=== PATIENT | male | born 1990 | race Caucasian/White ===

== ENCOUNTER 2022-01-04 01:02 | Emergency (ER) | payer MEDICAID, OTHER, SELFPAY ==
[2022-01-04 01:06] VITALS: BP 132/68; PULSE 82; O2SAT 99; BMI 24.9
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
[2022-01-04 01:17] VITALS: BP 125/74; PULSE 116; RESP 17; TEMP 36.4; O2SAT 96
[2022-01-04 01:22] LABS: Glucose, Whole Blood 145 mg/dL (60-115)
--- NOTE | 2022-01-04 02:18 | PC.NURSE ---
LATE ENTRY-pt continues to disconnect self from pulse ox, hospital monitor , and bp cuff. this rn assisted pt in moving up in bed
--- NOTE | 2022-01-04 02:19 | PC.NURSE ---
LATE ENTRY-pt attempt to get out of bed. pt redirected back in to bed by this rn
--- NOTE | 2022-01-04 02:20 | PC.NURSE ---
pt found OOB, unsteady on feet, zipping up coat. this rn and welding machine feeder polina attempted to redirect back to bed. pt noncompliant. security called. Dr. Larsen discussed with pt need to stay in bed. security observation in place
--- NOTE | 2022-01-04 04:16 | PC.NURSE ---
pt was redirected 3 times he was trying to leave , he took off BP cuff and monitor leads, refused ..pt is going between chair and bed
--- NOTE | 2022-01-04 04:44 | PC.NURSE ---
at this time pt sleeping comfortable on right side
[2022-01-04 06:06] VITALS: PULSE 81; RESP 17; O2SAT 96
--- NOTE | 2022-01-04 08:10 | PC.NURSE ---
[id number] pt was seen fully dreseed and ambulating w steady gait just outside of his room. it appears that he eloped soon after that
== END 2022-01-04 09:08 | disposition left against medical advice (07) ==
PROVIDERS: Emergency Provider Emergency Medicine
DX: F10.129 Alcohol abuse with intoxication, unspecified (principal); Y90.8 Blood alcohol level of 240 mg/100 ml or more
CPT/HCPCS: 82947; 99284; 99285

== ENCOUNTER 2022-07-05 23:44 | Emergency (ER) | payer MEDICAID, OTHER, SELFPAY ==
[2022-07-05 23:51] VITALS: BP 139/89; PULSE 115; RESP 16; TEMP 36.5; O2SAT 97; BMI 30.8
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
[2022-07-06 00:11] LABS: MANUAL DIFF FLAG NO
[2022-07-06 00:14] LABS: Basophils Percent Auto 0.3 % (0-2); Eosinophils Absolute Auto 0.1 X10*3/uL (0.0-0.4); Eosinophils Percent Auto 0.9 % (0-4); Hematocrit 45.2 % (42.0-52.0); Imm Gran Abs Auto 0.04 X10*3/uL (0.00-0.03); Imm Gran Pct Auto 0.4 % (0.0-0.4); Lymphocytes Absolute Auto 4.4 X10*3/uL (1.2-4.9); Lymphocytes Percent Auto 46.9 % (20-40); Mean Corpuscular HGB Conc 35.4 g/dl (31.0-36.0); Mean Corpuscular Hemoglobin 30.1 pg (27.0-33.0); Mean Platelet Volume 8.9 fL (9.4-12.4); Monocytes Absolute Auto 0.5 X10*3/uL (0.1-1.2); Monocytes Percent Auto 5.5 % (2-11); Neutrophils Absolute Auto 4.3 x10*3/uL (2.0-8.3); Platelet Count 311 X10*3/uL (160-400); Red Blood Count 5.32 X10*6/uL (4.60-5.80); Red Cell Distribution Width 12.1 % (11.0-16.0); White Blood Count 9.3 X10*3/uL (4.8-10.8)
[2022-07-06 00:34] LABS: Alanine Aminotransferase 47 U/L (0-40); Albumin Level 4.7 g/dL (3.5-5.0); Alkaline Phosphatase 139 U/L (39-117); Anion Gap 19 (12-20); Aspartate Amino Transferase 22 U/L (5-37); Bilirubin Total 0.2 mg/dL (0.0-1.0); Blood Urea Nitrogen 15 mg/dL (9-16); Calcium 9.4 mg/dL (8.4-10.2); Carbon Dioxide 22 mmol/L (22-29); Chloride 105 mmol/L (96-108); Creatinine Clr Calc Pharmacy 125.8; Estimated Glomerular Filt Rate > 60; Ethanol 237 mg/dL; Glucose Random 122 mg/dL (60-115); Potassium 3.5 mmol/L (3.3-5.1); Sodium 142 mmol/L (135-145); Total Protein 7.5 g/dL (6.5-8.0)
[2022-07-06 00:37] LABS: COVID-19 Test Negative (Negative); IDNOW Serial# 08D9AD1C
--- NOTE | 2022-07-06 03:41 | PC.NURSE ---
pt sleeping at this time, respirations even and unlabored, skin pwd, no apparent distress. pt has been calm and cooperative throughout time here Continue plan of care, urine sample needed for medical clearance to be seen by CARE team
[2022-07-06 03:42] VITALS: PULSE 83; RESP 16; O2SAT 99
--- NOTE | 2022-07-06 06:43 | PC.NURSE ---
Pt has been sleeping since arriving, respirations even and unlabored, skin pwd, no apparent distress Continue plan of care, urine needed for medical clearance, then pt can be seen by CARE team
[2022-07-06 09:00] VITALS: BP 144/85; PULSE 110; RESP 18; TEMP 37; O2SAT 94
[2022-07-06 13:17] LABS: Appearance Urine Clear; Color Urine Yellow; Glucose Urine UA Negative (Negative); Leukocyte Esterase Urine Negative (Negative); Nitrite Urine Negative (Negative); Specific Gravity - Urine 1.025 (1.005-1.025); UMIC TRIGGER UACC YES; Urine Blood Negative (Negative); Urine Ketones Trace mg/dL (Negative); Urine Protein 30 (1+) mg/dL (Neg-Trace)
[2022-07-06 13:25] LABS: Amphetamine Screen Urine Not Detected (Not Detect); Barbiturates, Urine Not Detected (Not Detect); Benzodiazepines Screen Urine Not Detected (Not Detect); Cannabinoid Screen Urine Not Detected (Not Detect); Cocaine Screen Urine Not Detected (Not Detect); Fentanyl, urine Not Detected (Not Detect); Opiate Screen Urine Not Detected (Not Detect); Phencyclidine Screen Urine Not Detected (Not Detect)
[2022-07-06 13:26] LABS: Bacteria Urine None Seen (None Seen); Hyaline Casts Urine 0-2 /LPF (0-2); RBC Urine 0-2 /HPF (0-2); Squamous Epithelial Cell Urine 0-2 /HPF (0-2); WBC Urine 0-5 /HPF (0-5)
--- NOTE | 2022-07-06 16:06 | PC.NURSE ---
care team and computer terminal operator at the bedside
== END 2022-07-06 16:52 | disposition home or self-care (01) ==
PROVIDERS: Emergency Provider Emergency Medicine
DX: F10.10 Alcohol abuse, uncomplicated (principal); Y90.7 Blood alcohol level of 200-239 mg/100 ml; R45.851 Suicidal ideations
CPT/HCPCS: 36415; 80053; 80307; 81001; 85025; 87635; 99284; S9485